=== PATIENT | female | born 1990 | race American Indian/Alaskan Native ===

== ENCOUNTER 2018-10-17 10:25 | Inpatient (IN) | payer OTHER ==
[~2018-10-17] VITALS: Ht 160 cm; Wt 78.0 kg
[2018-10-17 10:49] VITALS: BP 124/83
[2018-10-17] MEDS ORDERED: METOCLOPRAMIDE HCL 5 MG/ML 2 ML VIAL IVP PRN (11:15)
[2018-10-17] MEDS ORDERED: DINOPROSTONE 10 MG VAGINAL SUPPOSITORY VG ONE (11:15)
[2018-10-17] MEDS ORDERED: CITRIC ACID/SODIUM CITRATE 30 ML SOLUTION UDCUP PO PRN (11:15)
[2018-10-17] MEDS ORDERED: OXYGEN THERAPY IH SCH (11:15)
[2018-10-17] MEDS: RINGERS SOLUTION,LACTATED 1,000 ML IV SCH ×3 (11:38→23:47)
[2018-10-17 11:54] LABS: BASOPHILS % (AUTO) 0.2 % (0.0-2.0); EOSINOPHILS % (AUTO) 3.2 % (1.0-6.0); HEMOGLOBIN 11.7 g/dL (12.0-16.0); LYMPHOCYTES # (AUTO) 1.5 K/uL (1.0-4.8); LYMPHOCYTES % (AUTO) 15.4 % (22.0-44.0); MEAN CORPUSCULAR HEMOGLOBIN 28.4 pg (26.0-34.0); MEAN CORPUSCULAR HGB CONC 32.6 G/dL (31.0-37.0); MEAN CORPUSCULAR VOLUME 87 fL (80-100); MONOCYTES # (AUTO) 0.9 K/uL (0.1-1.0); MONOCYTES % (AUTO) 9.6 % (2.0-9.0); NEUTROPHILS % (AUTO) 71.6 % (40.0-70.0); PLATELET COUNT (AUTO)-OB 235 K/uL (150-450); RED BLOOD CELL COUNT(AUTO) 4.13 MIL/uL (4.00-5.20)
[2018-10-17 12:01] LABS: ANION GAP 12 mmol/L (8-16); CALCIUM, TOTAL 9.5 mg/dL (8.8-10.5); CARBON DIOXIDE 24 mmol/L (22-29); CHLORIDE 101 mmol/L (98-107); CREATININE 0.58 mg/dL (0.60-1.30); GLOMERULAR FILTR. RATE CALC > 60 mL/min (>60); GLUCOSE,RANDOM 80 mg/dL (70-110); SODIUM SERUM 137 mmol/L (136-145); UREA NITROGEN, BLOOD 7 mg/dL (7-18)
[2018-10-17 12:08] LABS: ALANINE AMINOTRANSFERASE 13 U/L (12-78); ALBUMIN 2.8 g/dL (3.4-5.0); ALKALINE PHOSPHATASE 146 U/L (46-116); ASPARTATE AMINOTRANSFERASE 22 U/L (15-37); BILIRUBIN,TOTAL 0.3 mg/dL (0.1-1.0); TOTAL PROTEIN, SERUM 6.1 g/dL (6.4-8.2)
[2018-10-17] MEDS ORDERED: TERBUTALINE SULFATE 1 MG/ML VIAL SQ PRN (16:30)
[2018-10-17] MEDS ORDERED: MISOPROSTOL 25 MCG TABLET VG SCH (18:30)
[2018-10-17] MEDS: FentaNYL CITRATE-PF 100 MCG/2 ML VIAL IVP PRN ×4 (21:03→22:46)
[2018-10-17] MEDS ORDERED: MISOPROSTOL 50 MCG TABLET PO ONE (22:30)
[2018-10-17] MEDS: RINGERS SOLUTION,LACTATED 1,000 ML IV PRN (22:39)
[2018-10-17] MEDS ORDERED: ROPIVACAINE HCL/PF 0.2% 100 ML ED ONE (23:04)
[2018-10-17] MEDS ORDERED: -PHARMACY NOTE- MISC ONE (23:15)
[2018-10-17] MEDS ORDERED: ROPIVACAINE HCL/PF 0.2% 100 ML ED PRN (23:39)
[2018-10-17] MEDS ORDERED: NALBUPHINE HCL 10 MG/ML VIAL IVP PRN (23:45)
[2018-10-17] MEDS ORDERED: ONDANSETRON HCL 4 MG/2 ML VIAL IVP PRN (23:45)
[2018-10-17] MEDS ORDERED: DiphenhydrAMINE HCL 50 MG/ML VIAL IVP PRN (23:45)
[2018-10-18] MEDS ORDERED: OXYTOCIN 30 UNITS/LACT RINGERS 500 ML IV ONE ×2 (01:48→01:50)
[2018-10-18] MEDS ORDERED: OXYTOCIN 30 UNITS/LACT RINGERS 500 ML IV PRN (05:35)
[2018-10-18] MEDS: RINGERS SOLUTION,LACTATED 1,000 ML IV SCH (05:49)
[2018-10-18] MEDS: RINGERS SOLUTION,LACTATED 1,000 ML IV PRN (12:10)
[2018-10-18] MEDS ORDERED: ACETAMINOPHEN/CODEINE 300-30 MG TABLET PO PRN ×4 (12:30→13:30)
[2018-10-18] MEDS ORDERED: GLYCERIN/WITCH HAZEL LEAF 40 PADS JAR TP PRN ×2 (12:30→13:30)
[2018-10-18] MEDS ORDERED: BENZOCAINE 20%/MENTHOL 56 GM SPRAY CANISTER TP PRN ×2 (12:30→13:30)
[2018-10-18] MEDS ORDERED: LANOLIN 7 GM OINTMENT TP PRN ×2 (12:30→13:30)
[2018-10-18] MEDS ORDERED: MAGNESIUM HYDROXIDE SUSPENSION 30 ML UDCUP PO SCH ×2 (13:30→21:00)
[2018-10-18] MEDS ORDERED: IBUPROFEN 800 MG TABLET PO SCH (14:00)
[2018-10-18] MEDS: IBUPROFEN 800 MG TABLET PO SCH ×2 (14:53→21:54)
[2018-10-19 00:58] VITALS: BP 120/70
[2018-10-19] MEDS: IBUPROFEN 800 MG TABLET PO SCH (05:36)
[2018-10-19] MEDS ORDERED: IBUP-2071 PO (09:34)
== END 2018-10-19 14:20 | disposition home or self-care (01) | DRG 807 ==
LOC: 4S 10:25 → OBSVTOIN 10:25
PROVIDERS: ADMIT Obstetrics & Gynecology; ATTEND Obstetrics & Gynecology
PROC: 10E0XZZ Delivery of Products of Conception, External Approach (ICD-10-PCS; principal; 2018-10-18)
PROC: 0KQM0ZZ Repair Perineum Muscle, Open Approach (ICD-10-PCS; 2018-10-18)
PROC: 3E0P7VZ Introduction of Hormone into Female Reproductive, Via Natural or Artificial Opening (ICD-10-PCS; 2018-10-18)
PROC: 3E0R3BZ Introduction of Anesthetic Agent into Spinal Canal, Percutaneous Approach (ICD-10-PCS; 2018-10-18)
PROC: 00HU33Z Insertion of Infusion Device into Spinal Canal, Percutaneous Approach (ICD-10-PCS; 2018-10-18)
DX: O70.1 Second degree perineal laceration during delivery (principal); Z37.0 Single live birth; O13.4 Gestational [pregnancy-induced] hypertension without significant proteinuria, complicating childbirth; Z3A.38 38 weeks gestation of pregnancy
CPT/HCPCS: 82239; 84550; 85461; 86850; 86870; 86900; 86901; J2590; J2795; J3010; J7120